=== PATIENT | female | born 1995 | race Caucasian/White ===

== ENCOUNTER 2017-01-12 07:32 | Emergency (ER) | payer SELFPAY ==
[~2017-01-12] VITALS: Ht 160 cm; Wt 49.1 kg
[2017-01-12 07:34] VITALS: BP 130/77
[2017-01-12] MEDS ORDERED: PROCHLORPERAZINE 5 MG/ML, 2ML ONE (08:15)
[2017-01-12] MEDS ORDERED: DIPHENHYDRAMINE 50 MG/ML, 1ML ONE (08:15)
[2017-01-12] MEDS ORDERED: KETOROLAC 30 MG/1 ML ONE (08:15)
[2017-01-12] MEDS ORDERED: ONDANSETRON 2MG/ML, 2ML ONE (08:15)
[2017-01-12] MEDS ORDERED: SODIUM CHLORIDE 0.9% 1,000ML IVBOLUS ONE (08:30)
[2017-01-12] MEDS ORDERED: ONDANSETRON 2MG/ML, 2ML IVPush ONE (08:30)
[2017-01-12] MEDS ORDERED: SODIUM CHLORIDE FLUSH 10ML SYR IVF ONE (08:30)
[2017-01-12] MEDS ORDERED: KETOROLAC 30 MG/1 ML IVPush ONE (08:30)
[2017-01-12] MEDS ORDERED: DIPHENHYDRAMINE 50 MG/ML, 1ML IVPush ONE (08:30)
[2017-01-12] MEDS ORDERED: PROCHLORPERAZINE 5 MG/ML, 2ML IVPush ONE (08:30)
[2017-01-12 08:50] LABS: ASPARTATE AMINO TRANSFERASE 16 U/L (15-37); BLOOD UREA NITROGEN 10 mg/dL (7-18)
== END 2017-01-12 09:09 | disposition left against medical advice (07) ==
LOC: ED 08:00
DX: G43.909 Migraine, unspecified, not intractable, without status migrainosus (principal); F41.9 Anxiety disorder, unspecified
CPT/HCPCS: 36415; 80053; 81003; 84703; 96361; 96374; 96375; 99284; J0780; J1200; J1885; J2405; J7030